=== PATIENT | female | born 1960 | race Caucasian/White ===

== ENCOUNTER 2017-11-18 14:18 | Inpatient (IN) | payer OTHER ==
[~2017-11-18] VITALS: Ht 165.1 cm; Wt 58.1 kg
--- NOTE | 2017-11-18 14:31 | ED GENERAL ADULT ---
History of Present Illness General Chief Complaint: Neuro Symptoms/ Deficit Stated Complaint: NURO SYMPTOMS Source: patient Exam Limitations: no limitations Vital Signs & Intake/Output Vital Signs & Intake/Output Vital Signs Date Time Temp Pulse Resp B/P B/P Pulse O2 O2 Flow FiO2 Mean Ox Delivery Rate 11/18 1727 98.2 78 18 119/68 96 11/18 1623 79 18 125/81 96 Room Air 11/18 1444 100 Room Air 11/18 1434 97.6 76 16 151/79 100 Room Air 11/18 1428 82 18 167/80 100 Room Air Room Air Allergies Coded Allergies: shrimp (DYSPNEA, DIFFICULTY SWALLOWING, HIVES 11/18/17) Reconcile Medications Aspirin/Acetaminophen/Caffeine (Excedrin Migraine Caplet) 250 MG-250 MG-65 MG TABLET 1 TAB PO ONCE MIGRAINES (Reported) Triage Note: TRIAGE: 57 Y/O FEMALE PRESENTS C/O CONFUSION X1 HOUR. REPORTS WAS WATCHING A MOVIE AT HOME AND THEN SAID THAT THE CHARACTERS "DIDN'T LOOK THE SAME". PATIENT REPORTS NAUSEA, AND GENERAL SENSE OF FEELING UNCOMFORTABLE. DENIES PAIN. NEUROS INTACT AT THIS TIME. A&O X3 - DELAYED RESPONSES. TRIAGED IN ROOM 12 WITH PRIMARY RN AT BEDSIDE. Triage Nurses Notes Reviewed? yes Onset: Abrupt Duration: hour(s): Timing: recent history HPI: 11/18/17 The patient was seen on arrival 57-year-old female presents to the emergency department for an episode of confusion. According to the patient's she was watching a movie. And had a sudden episode of inability to remember the names of her children, and other events that were going on. She had profound amnesia, no weakness. No slurred speech. She had a similar episode to this many years ago in which case it was associated with visual disturbances, this was in 1988 when she was with her daughter. This episode was not associated with visual loss. Now in the emergency department she is awake alert oriented 3. NIH stroke scale is 0. Past History Travel History Traveled to [place] past 21 day No Medical History Any Pertinent Medical History? see below for history Neurological: CVA Surgical History Surgical History: non-contributory Psychosocial History What is your primary language Niuean Tobacco Use: Never used ETOH Use: denies use Illicit Drug Use: denies illicit drug use Family History Hx Contributory? No Review of Systems Review of Systems Constitutional: Denies: fever. EENTM: Denies: visual changes. Respiratory: Denies: short of breath. Cardiovascular: Denies: chest pain. GI: Denies: abdominal pain. Genitourinary: Reports: no symptoms. Musculoskeletal: Reports: no symptoms. Skin: Reports: no symptoms. Neurological/Psychological: Reports: no symptoms. Hematologic/Endocrine: Reports: no symptoms. Immunologic/Allergic: Reports: no symptoms. Physical Exam Physical Exam General Appearance: well developed/nourished, alert, awake, anxious, comfortable Head: atraumatic, normal appearance Eyes: Bilateral: normal appearance, PERRL, EOMI. Ears, Nose, Throat: normal pharynx, normal ENT inspection, hearing grossly normal Neck: normal inspection, supple, full range of motion Respiratory: normal breath sounds, chest non-tender, no respiratory distress Cardiovascular: regular rate/rhythm Peripheral Pulses: 4+ radial (R), 4+ radial (L) Gastrointestinal: soft, non-tender Back: normal range of motion Extremities: normal inspection, no edema Neurologic/Psych: no motor/sensory deficits, awake, alert, oriented x 3 Skin: intact, normal color, warm/dry Core Measures ACS in differential dx? No CVA/TIA Diagnosis: Yes NIH Stroke Scale (24 Hours) NIH Stroke Scale (24 Hours) Response Value Level of Consciousness alert 0 LOC Questions answers both correctly 0 LOC Commands obeys both correctly 0 Best Gaze normal 0 Visual Vill[place] no visual loss 0 Facial Paresis normal 0 Motor Arm - Left no drift 0 Motor Arm - Right no drift 0 Motor Leg - Left no drift 0 Motor Leg - Right no drift 0 Limb Ataxia no ataxia 0 Sensory normal 0 Best Language no aphasia 0 Dysarthria normal articulation 0 Extinction and Inattention no neglect 0 Total 0 Date Last Known Well: 11/18/17 Time Last Known Well: 1500 Symptom start date: 11/18/17 Symptom start time: 1559 tPA Risk/Benefit discussion I have discussed the risks, benefits, and alternatives of Alteplase treatment including: - If given promptly, can resolve or have major improvement in stroke symptoms. - Bleeding (hemorrhage) is the most common risk that can occur. - Bleeding may occur into the brain and cause~intermediate serious disability~ including - this is rare, affecting about 1% of patients. - Alternative treatments with proven benefit for patients with stroke include aspirin and care in a specialized unit where staff members pay careful attention to a variety of basic aspects of care. tPA given? No Reason tPA not given Medical Contraindication Swallow Evaluation Pass Swallow eval date 11/18/17 Swallow eval time 1600 Sepsis Present: No Sepsis Focused Exam Completed? No Progress Differential Diagnoses I considered the following diagnoses in my evaluation of the patient: [TIA, CVA, transient global amnesia] Plan of Care: Orders Procedure Date/time Status Heart Healthy Diet 11/19 B Active LIPID PANEL 11/19 0600 Active Weight 11/18 193 Active Vital Signs 11/19 1935 Active Teach/Educate 11/19 1935 Active Pain Treatment and Response 11/19 1935 Active Nutritional Intake, Monitor 11/19 1935 Active Isolation 11/19 1935 Active Intake & Output 11/19 1935 Active Patient Care Conference 11/19 1935 Active Activity/Ambulation 11/19 1935 Active ECHOCARDIOGRAM 11/18 191 Active Pathway - chart 11/18 190 Active House Staff 11/18 190 Active Patient Data 11/18 190 Active Code Status 11/18 190 Active ED Holding Orders 11/18 180 Active Admit to inpatient 11/18 1801 Active Vital Signs 11/18 1801 Active Patient Data 11/18 1733 Active Saline Lock 11/18 1459 Active TROPONIN LEVEL 11/18 1458 Complete COMPREHENSIVE METABOLIC PANEL 11/18 1458 Complete CBC WITHOUT DIFFERENTIAL 11/18 1458 Complete EKG 11/18 1458 Active FingerStick- Glucose 11/18 1441 Complete Intake & Output 11/18 1427 Active [id number] DOPPLER 11/18 UNK Active VTE Mechanical Prophylaxis 11/18 UNK Active Telemetry/Sourcing Consultant 11/18 UNK Active MRI-HEAD W/O CALVIN 11/18 UNK Active Current Medications Sig/Raul Start time Last Medication Dose Stop Time Status Admin Atorvastatin Calcium 40 MG 1700 11/19 1700 AC (Lipitor) Enoxaparin Sodium 40 MG DAILY 11/18 190 AC (Lovenox) Laboratory Tests 11/18/17 1520: Anion Gap 10, Estimated GFR > 60, BUN/Creatinine Ratio 18.8, Glucose 99, Calcium 9.5, Total Bilirubin 0.9, AST 23, ALT 31, Alkaline Phosphatase 55, Troponin I < 0.01, Total Protein 6.7, Albumin 4.1, Globulin 2.6, Albumin/Globulin Ratio 1.6, CBC w Diff NO MAN DIFF REQ, RBC 4.16 L, MCV 88.2, MCH 30.3, MCHC 34.3, RDW 12.8 , MPV 7.6, Gran % 62.9, Lymphocytes % 27.9, Monocytes % 7.6, Eosinophils % 1.3, Basophils % 0.3, Absolute Granulocytes 4.1, Absolute Lymphocytes 1.8, Absolute Monocytes 0.5, Absolute Eosinophils 0.1, Absolute Basophils 0 Initial ED EKG: PENDING Departure Departure Disposition: STILL A PATIENT Condition: Stable Clinical Impression Primary Impression: TIA (transient ischemic attack) Departure Forms: Customer Survey General Discharge Information Admission Note Documentation of Exam: Documentation of any treatments & extenuating circumstances including Concerns Regarding Discharge (functional status, medication knowledge or non-compliance, living conditions, etc.) that warrant an admission rather than observation: [The patient needs admission for telemetry monitoring, neurological exams every 6 hours, consider echocardiogram] Critical Care Note Critical Care Note Critical Care Time: 30-74 min
[2017-11-18] MEDS ORDERED: EXCEDRIN MIGRA1 EAC1 PO (15:02)
[2017-11-18 15:27] LABS: ABSOLUTE BASOPHIL COUNT 0 /CUMM (0.0-0.2); ABSOLUTE EOSINOPHIL COUNT 0.1 /CUMM (0.0-0.7); ABSOLUTE GRANULOCYTE CT 4.1 /CUMM (1.4-6.5); ABSOLUTE LYMPH COUNT 1.8 /CUMM (1.2-3.4); ABSOLUTE MONOCYTE COUNT 0.5 /CUMM (0.10-0.60); BASOPHIL % 0.3 % (0.0-2.0); EOSINOPHIL % 1.3 % (0-5); GRANULOCYTE % 62.9 % (42.2-75.2); HEMATOCRIT 36.7 % (37-47); MEAN CORPUSCULAR HGB 30.3 PG (27.0-31.0); MEAN CORPUSCULAR HGB CONC 34.3 G/DL (33.0-37.0); MEAN CORPUSCULAR VOLUME 88.2 FL (81.0-99.0); MEAN PLATELET VOLUME 7.6 FL (7.4-10.4); PLATELET COUNT 312 /CUMM (130-400); RBC DISTRIBUTION WIDTH 12.8 % (11.5-14.5); RED BLOOD CELL CT 4.16 /CUMM (4.20-5.40); WHITE BLOOD CELL COUNT 6.5 /CUMM (4.8-10.8)
--- NOTE | 2017-11-18 15:50 | CT SCAN REPORT ---
EXAMINATION: CT HEAD WITHOUT CONTRAST CLINICAL INFORMATION: Altered mental status. Assess for CVA. COMPARISON: None. TECHNIQUE: Contiguous axial imaging was performed from the skull base to vertex without intravenous administration of contrast. DLP: 604.44 mGy-cm FINDINGS: There is no evidence of acute intracranial hemorrhage or territorial infarction. No abnormal mass effect or midline shift is seen. [place] to white matter differentiation is well preserved. No extra-axial fluid collections are identified. The ventricles are normal in size. There is no abnormal attenuation within the brain parenchyma. There are no acute osseous findings. There is a subcutaneous cyst in the right parietal scalp. The mastoid air cells and visualized portions of the paranasal sinuses are well aerated. IMPRESSION: 1. There are no acute bleeds or territorial infarcts. No masses are demonstrated.
--- NOTE | 2017-11-18 19:05 | History & Physical ---
Shana BURCH,Jennifer 11/18/171904: General Information and HPI MD Statement: I have seen and personally examined JOHN RASHID and documented this H&P. The patient is a 57 year old F who presented with a patient stated chief complaint of [aphasia]. Source of Information: patient, family Exam Limitations: no limitations History of Present Illness: Patient is a 57-year-old female with past medical history of the migraine presented with a chief complaints of episodes of aphagia and confusion lasted for around one hour. According to the patient, she was at home watching the movie and suddenly felt that the charecters just did not look the same. She was having sense of flushing along with some nausea and headache.She was not able to speak out the sentences completely though she was recognizing the faces. According to the family she was little bit confused. It was started around 1:15 a.m. and they brought her to ED around 2:00. During the whole period she was confused, not able to remember the names of her children especially the grandson. Although she was able to speak of the words there is no slurring of speech or disarticulation. She said that she had a similar episode in 1988 when she was with her first daughter. During that she was having episodes of not able to see from the right side of her eye. That episode also lasted for an hour. She is having history of migraines since last 10 years. The episodes are very infrequent, once in 3 months and she used to take Excedrin which helps with the migraine. Allergies-Schrimp Personal history-lives with the family, pretty active, able to do all household work, denies smoking and alcohol intake. Family history-father and grandmother had history of stroke at the age of 60s and 70s Allergies/Medications Allergies: Coded Allergies: shrimp (DYSPNEA, DIFFICULTY SWALLOWING, HIVES 11/18/17) Past History Travel History Traveled to [place] past 21 day No Medical History Neurological: CVA Surgical History Surgical History: non-contributory Past Family/Social History Psychosocial History ETOH Use: denies use Illicit Drug Use: denies illicit drug use Review of Systems Review of Systems Constitutional: Denies: no symptoms. Exam & Diagnostic Data Last 24 Hrs of Vital Signs/I&O Vital Signs Date Time Temp Pulse Resp B/P B/P Pulse O2 O2 Flow FiO2 Mean Ox Delivery Rate 11/18 1727 98.2 78 18 119/68 96 11/18 1623 79 18 125/81 96 Room Air 11/18 1444 100 Room Air 11/18 1434 97.6 76 16 151/79 100 Room Air 11/18 1428 82 18 167/80 100 Room Air Room Air Intake & Output 11/18 1600 11/18 0800 11/18 0000 Intake Total Output Total Balance Patient 63.503 kg Weight Weight Estimated Measurement Method Physical Exam General Appearance Alert, Oriented X3, Cooperative, No Acute Distress Cardiovascular Normal S1, Normal S2 Lungs Clear to Auscultation, Normal Air Movement Abdomen Soft, No Tenderness Neurological Normal Gait, Normal Speech, Strength at 5/5 X4 Ext, Normal Tone, Sensation Intact, Cranial Nerves 3-12 NL, Reflexes 2+ Extremities No Clubbing, No Cyanosis, No Edema, Normal Pulses Last 24 Hrs of Labs/Moises: Laboratory Tests 11/18/17 1520: Anion Gap 10, Estimated GFR > 60, BUN/Creatinine Ratio 18.8, Glucose 99, Calcium 9.5, Total Bilirubin 0.9, AST 23, ALT 31, Alkaline Phosphatase 55, Troponin I < 0.01, Total Protein 6.7, Albumin 4.1, Globulin 2.6, Albumin/Globulin Ratio 1.6, CBC w Diff NO MAN DIFF REQ, RBC 4.16 L, MCV 88.2, MCH 30.3, MCHC 34.3, RDW 12.8 , MPV 7.6, Gran % 62.9, Lymphocytes % 27.9, Monocytes % 7.6, Eosinophils % 1.3, Basophils % 0.3, Absolute Granulocytes 4.1, Absolute Lymphocytes 1.8, Absolute Monocytes 0.5, Absolute Eosinophils 0.1, Absolute Basophils 0 Diagnostic Data EKG Results Normal sinus rhythm, heart rate 72, WI interval 172, QTc [address] scan of the head-There are no acute bleeds or territorial infarcts. No masses are demonstrated. Assessment/Plan Assessment: Patient is a 57-year-old female with past medical history of the migraine presented with a chief complaints of episodes of aphagia and confusion lasted for around one hour. Vital signs at the time of admission-temperature 97.6, pulse 82, respiratory 18, blood pressure 167/80, pulse rate 100 Blood workup showed-hemoglobin 12.6, hematocrit 36.7, platelet 312, granulocyte 62.9, sodium 139, potassium 3.8, chloride 107, anion gap 10, carbon dioxide 22, BUN 15, creatinine 0.8, glucose 99, calcium 9.5, total bilirubin 0.9, AST 23, ALT 31, alkaline phosphatase 55, troponin less than 0.01, albumin 4.1. CT scan of the head-there is no any acute intracranial bleeding or infarcts. Assessment and plan- Episode of aphasia and confusion -we will rule out CVA, other differentials are seizures, migraine - * We will admit the patient to telemetry floor * We will follow MRI of the head, carotid Doppler, echocardiogram, EEG. * Follow-up neurology recommendation * She passed bedside swallow evaluation * We will do lipid profile,TSHr * We will start patient on aspirin and high-dose atorvastatin * Neuro check every shift * Watch for arrhythmias CODE STATUS-full code DVT prophylaxis-ALPS/heparin Diet-heart healthy diet As Ranked By This Provider Problem List: 1. TIA (transient ischemic attack) Core Measures/Misc (12/11) Acute Coronary Syndrome ACS Diagnosis: No Congestive Heart Failure Congestive Heart Failure Diagnosis No Cerebrovascular Accident CVA/TIA Diagnosis: Yes NIH Stroke Scale: Total 0 Date Last Known Well: 11/18/17 Time Last Known Well: 1500 Symptom Start Date: 11/18/17 Symptom Start Time: 1559 tPA Risk/Benefit discussion I have discussed the risks, benefits, and alternatives of Alteplase treatment including: - If given promptly, can resolve or have major improvement in stroke symptoms. - Bleeding (hemorrhage) is the most common risk that can occur. - Bleeding may occur into the brain and cause~fpc serious disability~ including - this is rare, affecting about 1% of patients. - Alternative treatments with proven benefit for patients with stroke include aspirin and care in a specialized unit where staff members pay careful attention to a variety of basic aspects of care. tPA given? No Reason tPA not ordered Medical Contraindication Swallow Evaluation Pass Current/Past Hx AFib/AFlutter No VTE (View Protocol) VTE Risk Factors Age>40 No Mechanical VTE Prophylaxis d/t N/A MechProphylax Ordered No VTE Pharm Prophylaxis d/t NA PharmProphylax ordered Sepsis (View protocol) Sepsis Present: No If YES complete Sepsis Event Note If YES complete Sepsis Event Note Moe Bingham MD 11/19/17 1333: General Information and HPI Allergies/Medications Home Med list Atorvastatin Calcium 40 MG TABLET 40 MG PO 1700 HIGH CHOLESTEROL . Core Measures/Misc (12/11) Sepsis (View protocol) If YES complete Sepsis Event Note If YES complete Sepsis Event Note Attending MD Review Statement Attending Statement Attending MD Statement: examined this patient, discuss w/resident/PA/SUPERVISOR MATRIX, agreed w/resident/PA/SUPERVISOR MATRIX, discussed with family, reviewed EMR data (avail), reviewed images, amended to note Attending Assessment/Plan: The patient is a 57 yo female with h/o migraine headaches who presented in the [place] ED with an episode of aphasia/confusion that began at around 1 pm on the day of admission and lasted for approximately 1 hour. Details of event are described above. She stated she had a similar event in 1988 when and had a full evaluation at [facility] in [place] (neg MRI, etc.). With the current episode she did note a headache. Did describe some "fuzzy vision", however no field loss (last episode she had visual field cut). At the time of my exam all symptoms had resolved. She denied any focal weakness and was moving normally during this episode as per family. Physical Exam: VS: T 98.2, P 78, R 16, BP 167/80-119/68, PO 96-100\\% RA HEENT: eyes- PERRLA, EOMI aby- moist mucosa Chest: clear Cor: RRR nl S1, S2 w/o murm Abd: BS+, soft, NT Ext: no edema, pulses 2+ Neuro: alert & oriented x 3, motor, sensory, DTR's, FTN/HTS all intact, CN 2-12 intact Lab/Tests- as above Impression/Plan: #Transient Alteration in Mental Status- considerations include TIA, however with h/o migraine headaches this may represent atypical migraine. Plan: Admitted to telemetry service as per TIA protocol. q4h neuro checks Neurology Consult. ASA 81 mg daily (325 mg given in ED). Carotid US, ECHO, EEG, MRI pending Neuro input. Check lipids. #Migraine Headaches- has not seen neurologist and takes Excedrin at home with relief. Plan: Await Neurology input. Of note, patient does not have medical insurance at present.
[2017-11-18 22:14] VITALS: BP 130/84
[2017-11-19 06:39] VITALS: BP 100/68
--- NOTE | 2017-11-19 09:09 | PN- Housestaff ---
Shana BURCH,Jennifer 11/19/17 0909: Subjective Follow-up For: Episode of aphasia and strokelike symptoms Tele-Events Since Last Visit: No any new events Subjective: Patient is seen and examined at the bedside. She was completely all right without any neurological deficit. She did not had any episodes of aphasia again. We discussed in detail about the plan. Dr. Dr. Bingham he advised to call Dr. Chris. It was told that he will come in the afternoon and then we will decide if patient really need MRI/EEG as an inpatient. Objective Last 24 Hrs of Vital Signs/I&O Vital Signs Date Time Temp Pulse Resp B/P B/P Pulse O2 O2 Flow FiO2 Mean Ox Delivery Rate 11/19 0639 98.4 73 18 100/68 98 Room Air 11/18 2214 98.0 73 18 130/84 97 Room Air 11/18 1727 98.2 78 18 119/68 96 11/18 1623 79 18 125/81 96 Room Air 11/18 1444 100 Room Air 11/18 1434 97.6 76 16 151/79 100 Room Air 11/18 1428 82 18 167/80 100 Room Air Room Air Intake & Output 11/19 1600 11/19 0800 11/19 0000 Intake Total 300 300 Output Total Balance 300 300 Intake, Oral 300 300 Patient 58.06 kg Weight Weight Bed scale Measurement Method Physical Exam General Appearance: Alert, Oriented X3, Cooperative, No Acute Distress Cardiovascular: Normal S1, Normal S2 Lungs: Clear to Auscultation, Normal Air Movement Abdomen: Soft, No Tenderness Neurological: Normal Speech Extremities: No Clubbing, No Cyanosis, No Edema Current Medications: Current Medications Sig/Raul Start time Last Medication Dose Route Stop Time Status Admin Aspirin 81 MG DAILY 11/19 0933 AC PO Aspirin 0 .STK-MED ONE 11/18 1817 DC PO Aspirin 325 MG ONCE ONE 11/18 181 DC 11/18 PO 11/18 181 1820 Atorvastatin Calcium 40 MG 1700 11/19 1700 AC PO Enoxaparin Sodium 40 MG DAILY 11/18 1907 AC 11/18 SC 2130 Last 24 Hrs of Lab/Moises Results Last 24 Hrs of Labs/Mics: Laboratory Tests 11/19/17 0735: Triglycerides 65, Cholesterol 188, LDL Cholesterol, Calc 115, HDL Cholesterol 60 , Cholesterol/HDL Ratio 3 11/18/17 1520: Anion Gap 10, Estimated GFR > 60, BUN/Creatinine Ratio 18.8, Glucose 99, Calcium 9.5, Total Bilirubin 0.9, AST 23, ALT 31, Alkaline Phosphatase 55, Troponin I < 0.01, Total Protein 6.7, Albumin 4.1, Globulin 2.6, Albumin/Globulin Ratio 1.6, TSH &T3 &Free T4 Intrp 1.100, CBC w Diff NO MAN DIFF REQ, RBC 4.16 L, MCV 88.2, MCH 30.3, MCHC 34.3, RDW 12.8, MPV 7.6, Gran % 62.9, Lymphocytes % 27.9, Monocytes % 7.6, Eosinophils % 1.3, Basophils % 0.3, Absolute Granulocytes 4.1, Absolute Lymphocytes 1.8, Absolute Monocytes 0.5, Absolute Eosinophils 0.1, Absolute Basophils 0 Assessment/Plan Assessment: Patient is a 57-year-old female with past medical history of the migraine presented with a chief complaints of episodes of aphagia and confusion lasted for around one hour. Vital signs-temperature 98.4, pulse 73, respiratory 18, blood pressure 100/60, SPO2 98% on room air. Carotid Doppler did not show any evidence of plaque or obstruction. Problem list- Episode of aphasia and confusion possibly migraines/seizures/TIA Assessment and plan- * We will follow neurology recommendation * We will follow MRI of brain * We will follow echocardiogram * Continue aspirin and atorvastatin. * CODE STATUS-full code * DVT prophylaxis-ALPS/heparin * Diet-heart healthy diet Problem List: 1. TIA (transient ischemic attack) Pain Ratin Pain Location: n/a Pain Goal: Remain pain free Pain Plan: n/a Tomorrow's Labs & Rationales: n/a DVT/Prophylaxis: mechanical, pharmacological, early ambulation low risk Moe Bingham MD 11/19/17 1347: Subjective Review of Systems Constitutional: Denies: no symptoms. Attending MD Review Statement Attending Statement Attending MD Statement: examined this patient, discuss w/resident/PA/CDL DRIVER, agreed w/resident/PA/CDL DRIVER, reviewed EMR data (avail), amended to note Attending Assessment/Plan: The patient was seen and discussed with house staff. Agree with above assessment and plan of care. Await carotid US/ECHO. Neurology input from Dr. Chris pending. If felt to be atypical migraine consider discharge with further evaluation as outpatient.
--- NOTE | 2017-11-19 09:54 | ULTRASOUND REPORT ---
EXAMINATION: DUPLEX BILATERAL CAROTID ULTRASOUND CLINICAL INFORMATION: Aphasia, memory loss, headache. Presumptive diagnosis of stroke. COMPARISON: None. TECHNIQUE: \H\B\N\ilateral carotid US was performed using real-time ultrasound and Doppler techniques (integrating B-mode 2D vascular images, Doppler spectral analysis and color flow Doppler imaging). These techniques were utilized to interrogate the extracranial carotid and vertebral arteries bilaterally. The degree of stenosis is based off criteria similar to NASCET. FINDINGS: Right side: 1. No plaque is seen in the ECA/ICA region. 2. The common carotid artery velocity is 80 cm/s. 3. The internal carotid artery velocities are 63 cm/s systolic and 30 cm/s diastolic. 4. The external carotid artery velocity is 68 cm/s. Left side: 1. No plaque is seen in the ECA/ICA region. 2. The common carotid artery velocity is 93 cm/s. 3. The internal carotid artery velocities are 82 cm/s systolic and 32 cm/s diastolic. 4. The external carotid artery velocity is 82 cm/s. ADDITIONAL FINDINGS: 1. The vertebral arteries show antegrade flow. IMPRESSION: Unremarkable examination. No plaque or vascular abnormality in the cervical carotid system.
[2017-11-19] MEDS ORDERED: ATORVASTATIN CA40 M1 PO ×2 (13:08→14:18)
[2017-11-19] MEDS ORDERED: ASPIRIN81 M4 PO (13:08)
--- NOTE | 2017-11-19 13:11 | Patient Discharge Instructions ---
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 Please take the medication as advised Please come back to emergency department if you again have similar kind of episode or strokelike symptoms. Diet Recommended Diet: Heart Healthy Acute Coronary Syndrome Inclusion Criteria At DC or during hospital stay patient has or had the following: ACS DIAGNOSIS No Discharge Core Measures Meds if any: Prescribed or Continued at Discharge Meds if any: NOT Prescribed or Continued at Discharge Congestive Heart Failure Inclusion Criteria At DC or during hospital stay patient has or had the following: CHF DIAGNOSIS No Discharge Core Measures Meds if any: Prescribed or Continued at Discharge Meds if any: NOT Prescribed or Continued at Discharge Cerebrovascular accident Inclusion Criteria At DC or during hospital stay patient has or had the following: CVA/TIA Diagnosis No Discharge Core Measures Meds if any: Prescribed or Continued at Discharge Antithrombotic No Statin (required if LDL =>70) Yes Meds if any: NOT Prescribed or Continued at Discharge Venous thromboembolism Inclusion Criteria VTE Diagnosis No VTE Type NONE VTE Confirmed by (Test) NONE Discharge Core Measures - Per Current guidelines, there needs to be overlap - treatment for the first 5 days of Warfarin therapy. - If discharged on Warfarin prior to 5 days of - overlap therapy, the patient will need to be - assessed for post discharge needs including - *Post discharge parental anticoagulation - *Warfarin and/or parental anticoagulation education - *Follow up date to check INR post discharge At least 5 days overlap therapy as Inpatient No Meds if any: Prescribed or Continued at Discharge Warfarin No Note: Overlap Therapy is Warfarin and Anticoagulant Meds if any: NOT Prescribed or Continued at Discharge
--- NOTE | 2017-11-19 13:47 | Admission Certification ---
Admission Certification Certification Statement - As attending physician, I certify that at the time of - admission, based on clinical presentation, severity of - symptoms, need for further diagnostic testing and - therapeutic interventions, and risk of adverse outcomes - without in-hospital treatment, in my clinical assessment, - this patient requires an acute hospital stay for a minimum - of two nights or longer. I have also considered psychsocial - factors such as support system, advanced age, financial - issues, cognitive issues, and failed out-patient treatments, - past re-admission history, safety of patient, and lack of - compliance as applicable. Specific rationale supporting this admission is: The patient presents with transient neurologic symptoms- confusion/aphasia, along with headache. Possible TIA vs atypical migraine. Needs admit to telemetry service and monitored with q4h neuro checks. Carotid US, ECHO, MRI, ?EEG, Neuro consult. ASA 81 mg daily. Check lipids.
--- NOTE | 2017-11-19 14:27 | Cons- Neurology ---
General Information and HPI Consulting Request Date of Consult: 11/19/17 Requested By: Moe Bingham MD History of Present Illness: Pleasant 57-year-old female in general good state of health was admitted yesterday after an episode of apparent confusion. The patient states that she was at her desk when she began to feel somewhat unwell. She recalls that she began to experience a visual obscuration, likened to a geometric pattern in her upper visual field. Her subsequently noted that the patient seemed confused. She could not recall the names of her grandchildren which would be completely unusual for her. There was no significant headache. She was brought to the emergency department after which her symptoms completely resolved within approximately one half hour. She was admitted for brief observation. CAT scan of the brain was unrevealing. The patient will admit to a similar happenstance years ago during her first . Apparently doctors were unable to definitively diagnose the event however I believe that migraine was considered. Over the years, she does still suffer from infrequent headaches associated with nausea which may occur several times per year Allergies/Medications Allergies: Coded Allergies: shrimp (DYSPNEA, DIFFICULTY SWALLOWING, HIVES 11/18/17) Home Med List: Atorvastatin Calcium 40 MG TABLET 40 MG PO 1700 HIGH CHOLESTEROL . Review of Systems Review of Systems: Positive for intermittent anxiety. There is been no recent fever, chills, rash, diplopia, dysarthria, dysphagia, chest pain, shortness of breath, vomiting, vertigo, joint inflammation or abnormal bleeding. Past History Travel History Traveled to [place] past 21 day No Medical History Blood Transfusion Hx: No Neurological: CVA, TIA EENT: NONE Cardiovascular: NONE Respiratory: NONE Gastrointestinal: NONE Hepatic: NONE Renal: NONE Musculoskeletal: NONE Psychiatric: NONE Endocrine: NONE Blood Disorders: NONE Cancer(s): NONE UNDER CUTTING MACHINE OPERATOR/Reproductive: NONE Surgical History Surgical History: 1 Psychosocial History Where Do You Live? Home Smoking Status: Never Smoked ETOH Use: denies use Illicit Drug Use: denies illicit drug use Exam & Diagnostic Data Vital Signs and I&O Vital Signs Date Time Temp Pulse Resp B/P B/P Pulse O2 O2 Flow FiO2 Mean Ox Delivery Rate 11/19 0639 98.4 73 18 100/68 98 Room Air 11/18 2214 98.0 73 18 130/84 97 Room Air 11/18 1727 98.2 78 18 119/68 96 11/18 1623 79 18 125/81 96 Room Air 11/18 1444 100 Room Air 11/18 1434 97.6 76 16 151/79 100 Room Air 11/18 1428 82 18 167/80 100 Room Air Room Air Intake & Output 11/19 1600 11/19 0800 11/19 0000 Intake Total 300 300 Output Total Balance 300 300 Intake, Oral 300 300 Patient 128 lb Weight Weight Bed scale Measurement Method Pleasant middle-aged female in no acute distress. Head was normocephalic and atraumatic. Higher cortical function was intact. Speech was fluent. Pupils were equal and reactive. Extraocular movements were full. There was no field cut. There was no nystagmus. Facial strength and sensation was intact. Hearing was grossly normal. Tongue was midline. The motor examination showed normal tone, bulk and strength throughout. Deep tendon reflexes were symmetric. Plantar responses were flexor. Fine finger movements and rapid alternating movements were performed normally. Sensory examination was normal to primary modalities. Assessment/Plan Assessment: My suspicion was that the patient's presenting complaint was migrainous in origin. She does have a history compatible with chronic, intermittent migraine. She has no significant vascular risk factors. She is back to her baseline and feeling well. Recommendations: The patient may be discharged from our neurological perspective. She will feel free to contact me and follow-up in the office should episodes become more frequent or intrusive in the future. Consult Acknowledgment - Thank you for your consult request.
[2017-11-19 14:41] VITALS: BP 104/58
--- NOTE | 2017-11-20 08:57 | ECHOCARDIOGRAM REPORT ---
JOHN RASHID Age: 57 : 1960 Gender: F Exam Date: 11/19/2017 10:06 Exam Location: [address] Ht (in): 65 Wt (lb): 140 BSA: 1.71 BP: 108 / 68 Ordering Physician: Michelle Saldana MD Referring Physician: Michelle Saldana MD Technologist: Colette Back [facility] Room Number: [id number] Indications: Arrhythmias Rhythm: Sinus Technical Quality: Good FINDINGS Left Ventricle Normal size left ventricle. Normal left ventricular wall thickness. Normal left ventricular ejection fraction visually estimated at > 60%. No obvious regional wall motion abnormalities. Normal left ventricular diastolic filling pattern for age. Right Ventricle Normal right ventricular size and function. Right Atrium Normal right atrial size. Left Atrium Normal left atrial size. Mitral Valve Mild mitral annular calcification. Mild mitral regurgitation. Aortic Valve Structurally normal trileaflet aortic valve. Mild aortic regurgitation. Tricuspid Valve Tricuspid valve not well visualized, grossly normal. Mild tricuspid regurgitation. No evidence of pulmonary hypertension. Pulmonic Valve Pulmonic valve not well visualized, grossly normal. Trace pulmonic regurgitation. Pericardium No pericardial effusion. Great Vessels Normal size aortic root. CONCLUSIONS Normal size left ventricle. Normal left ventricular ejection fraction visually estimated at > 60%. Mild mitral regurgitation. Mild tricuspid regurgitation. No evidence of pulmonary hypertension. Trace pulmonic regurgitation. John Fang M.D. (Electronically Signed) Final Date: 20 November 2017 08:55 MEASUREMENTS (Male / Female) Normal Values 2D ECHO LV Diastolic Diameter PLAX 4.4 cm 4.2 - 5.9 / 3.9 - 5.3 cm LV Systolic Diameter PLAX 2.5 cm 2.1 - 4.0 cm LV Fractional Shortening PLAX 43.2 % 25 - 46 % LV Ejection Fraction 2D Teich 74.5 % IVS Diastolic Thickness 0.9 cm LVPW Diastolic Thickness 0.8 cm LV Relative Wall Thickness 0.4 RV Internal Dim ED PLAX 2.1 cm 1.9 - 3.8 cm LVOT Diameter 1.9 cm Aortic Root Diameter 2.8 cm LA Systolic Diameter LX 3.3 cm 3.0 - 4.0 / 2.7 - 3.8 cm LA Volume 28.0 cm 18 - 58 / 22 - 52 cm Ascending Aorta Diameter 3.0 cm DOPPLER AV Peak Velocity 103.0 cm/s AV Peak Gradient 4.2 mmHg AV Mean Velocity 70.6 cm/s AV Mean Gradient 2.0 mmHg AV Velocity Time Integral 23.2 cm LVOT Peak Velocity 97.0 cm/s LVOT Peak Gradient 3.8 mmHg LVOT Mean Velocity 65.0 cm/s LVOT Mean Gradient 2.0 mmHg LVOT Velocity Time Integral 22.0 cm LVOT Stroke Volume 62.4 cm AV Area Cont Eq vti 2.7 cm AV Area Cont Eq pk 2.7 cm MV Peak Velocity 72.4 cm/s MV Peak Gradient 2.1 mmHg MV Mean Velocity 45.5 cm/s MV Mean Gradient 1.0 mmHg Mitral E Point Velocity 67.1 cm/s Mitral A Point Velocity 61.2 cm/s Mitral E to A Ratio 1.1 MV PHT Velocity 75.3 cm/s MV Deceleration [place] 262.0 cm/s MV Pressure Half Time 86.2 ms MV Area PHT 2.6 cm MV Deceleration Time 206.0 ms TR Peak Velocity 178.0 cm/s TR Peak Gradient 12.7 mmHg Right Atrial Pressure 5.0 mmHg Pulmonary Artery Systolic Pressure 17.7 mmHg Right Ventricular Systolic Pressure 17.7 mmHg PV Peak Velocity 88.9 cm/s PV Peak Gradient 3.2 mmHg PV Mean Velocity 65.2 cm/s PV Mean Gradient 2.0 mmHg PV Velocity Time Integral 22.6 cm LV E' Lateral Velocity 15.5 cm/s Mitral E to LV E' Lateral Ratio 4.3 LV E' Septal Velocity 10.6 cm/s Mitral E to LV E' Septal Ratio 6.3
== END 2017-11-19 15:45 | DRG 69 ==
LOC: ERH 14:18 → ERHI 18:01 → ENRESERV 18:17 → ENTRNSPT 18:46 → EDTRNSPTSTS 18:59 → EDTRNSPT 18:59 → 1NO 19:03 → CMPTRNSPT 19:12 → ENPENDDIS 11-19 14:13 → 1NO 11-19 15:45
PROVIDERS: Emergency Medicine; Internal Medicine Adolescent Medicine
DX: G45.9 Transient cerebral ischemic attack, unspecified (principal); G43.909 Migraine, unspecified, not intractable, without status migrainosus
CPT/HCPCS: 1NSP; 36592; 93005; 93010; 93306; 99291; J1650; J3490